=== PATIENT | male | born 2000 | race Caucasian/White ===

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

== ENCOUNTER 2023-09-08 20:13 | Emergency (ER) | payer BC ==
[2023-09-08] MEDS ORDERED: Naloxone 0.4 MG/ML SDV IVPUSH PRN (20:53)
[2023-09-08] MEDS: Morphine 2 MG/ML SYRINGE IM ONE (21:08)
[2023-09-08] MEDS: Ondansetron 4 MG Tab.DIS PO ONE (21:09)
[2023-09-08] MEDS: Ketorolac 60 MG/2 ML SDV IM ONE (21:45)
[2023-09-08 21:58] VITALS: BP 135/71; PULSE 74
== END 2023-09-08 21:56 | disposition home or self-care (01) ==
LOC: JD.ED 20:13
DX: S29.8XXA Other specified injuries of thorax, initial encounter (principal); Z88.2 Allergy status to sulfonamides; W18.40XA Slipping, tripping and stumbling without falling, unspecified, initial encounter
CPT/HCPCS: 71046; 71100; 96372; 99283; A9270; J1885; J2270; 99282

== ENCOUNTER 2024-07-20 12:10 | Emergency (ER) | payer BC ==
[2024-07-20 14:30] VITALS: BP 133/68; PULSE 64
== END 2024-07-20 13:00 | disposition home or self-care (01) ==
LOC: JD.ED 12:10
DX: S60.221A Contusion of right hand, initial encounter (principal); Z88.2 Allergy status to sulfonamides; Z79.899 Other long term (current) drug therapy; W23.1XXA Caught, crushed, jammed, or pinched between stationary objects, initial encounter; Y93.89 Activity, other specified
CPT/HCPCS: 73130-26-LT; 73130-LT; 99283

== ENCOUNTER 2024-08-14 09:42 | Emergency (ER) | payer BC ==
[2024-08-14 10:38] LABS: BASOPHILS PERCENT AUTO 0.6 % (0.0-1.0); EOSINOPHILS ABSOLUTE AUTO 0.2 K/mm3 (0.0-0.4); EOSINOPHILS PERCENT AUTO 2.6 % (0.0-6.0); HEMATOCRIT 47.3 % (42.0-52.0); HEMOGLOBIN 16.1 gm/dl (14.0-18.0); IMMATURE GRAN ABSOLUTE AUTO 0.01 K/mm3 (0.00-0.05); IMMATURE GRAN PERCENT AUTO 0.2 % (0.0-0.4); LYMPHOCYTES ABSOLUTE AUTO 1.6 K/mm3 (1.0-4.8); LYMPHOCYTES PERCENT AUTO 24.4 % (24.0-44.0); MEAN CORPUSCULAR HEMOGLOBIN 29.2 pg (28.0-32.0); MEAN CORPUSCULAR VOLUME 85.7 fl (83.0-99.0); MEAN PLATELET VOLUME 9.5 fl (9.4-12.4); MONOCYTES ABSOLUTE AUTO 0.5 K/mm3 (0.0-0.8); MONOCYTES PERCENT AUTO 7.4 % (0.0-8.0); NEUTROPHILS ABSOLUTE AUTO 4.3 K/mm3 (1.8-7.7); NEUTROPHILS PERCENT AUTO 64.8 % (41.0-71.0); PLATELET COUNT,PLT 246 K/mm3 (150-400); RED BLOOD CELL COUNT 5.52 M/mm3 (4.52-5.90); WHITE BLOOD CELL COUNT,WBC 6.63 K/mm3 (3.9-11.3)
[2024-08-14 11:16] LABS: A/G RATIO 1.4 (1-2); ALBUMIN 4.3 g/dl (3.4-5.0); ANION GAP 12.8 (5-15); BILIRUBIN TOTAL 2.7 mg/dL (0.2-1.0); CALCIUM 9.2 mg/dL (8.5-10.1); CREATININE 1.2 mg/dL (0.7-1.3); EST CRCL DRUG DOSING (CG) 102.84 mL/min; POTASSIUM,K 3.8 mEq/L (3.5-5.1); PROTEIN TOTAL,TP 7.4 g/dl (6.4-8.2); TSH 0.882 uIU/mL (0.358-3.74)
[2024-08-14 11:20] LABS: BARBITURATE SCREEN,URINE NEGATIVE (CUTOFF=200); BENZODIAZEPINES SCREEN,URINE NEGATIVE (CUTOFF=150); BUPRENORPHINE SCREEN,URINE NEGATIVE (CUTOFF=10); METHADONE SCREEN, URINE NEGATIVE (CUT0FF=200); METHAMPHETAMINES SCREEN, URINE NEGATIVE (CUTOFF=500); OXYCODONE SCREEN,URINE NEGATIVE (CUT0FF=100); THC SCREEN,URINE 20 NG/ML PRESUMPTIVE POSITIVE (CUTOFF=50)
[2024-08-14 11:23] LABS: AMPHETAMINES SCREEN, URINE NEGATIVE (CUTOFF=500)
[2024-08-14 14:12] VITALS: BP 126/54; PULSE 60
== END 2024-08-14 14:01 ==
LOC: JD.ED 09:42
DX: R45.851 Suicidal ideations (principal); Z88.2 Allergy status to sulfonamides
CPT/HCPCS: 36415; 76705; 76705-26; 80053; 80143; 80179; 80306; 80307; 84443; 85025; 87428-QW; 93005; 93010; 99285